=== PATIENT | female | born 1955 | race Caucasian/White ===

== ENCOUNTER 2023-05-11 08:20 | Outpatient (OUT) | payer MEDICARE, SELFPAY ==
--- NOTE | 2023-05-11 08:32 | MR_ITS ---
The [address] [address] Patient Name: GINGER JEFFERSON MRN: [id number] date: 1955 Sex: F Assigned Patient Location: MRI Current Patient Location: MRI Accession/Order Number: [id number] Exam Date: 05/11/2023 09:00 Report Date: 05/11/2023 10:38 At the request of: SCAR RANGEL Procedure: MR head/brain wo con MR head/brain wo con, 05/11/2023 9:00 AM EDT INDICATION: Cognitive Impairment R41.89 COMPARISON: There is no appropriate prior study for comparison. TECHNIQUE: Multiplanar, multisequential MRI images of brain were obtained without injection of contrast. FINDINGS: The cerebral sulci as well as ventricular system are appropriate for age. There is no restricted diffusion. Hyperintensities on T2 and FLAIR images in the kinsey radiata and centrum semiovale with sparing of U fibers are nonspecific, statistically most likely consistent with mild microvascular ischemic changes. There is no intracranial mass, mass effect, midline shift, intra or extra-axial fluid collection or large hemorrhage. Normal flow-void in the intracranial vessels is noted. There is retention cyst within the maxillary sinuses. The visualized portions of orbits, mastoid air cells as well as remainder of paranasal sinuses are unremarkable. MR/MR head/brain wo con IMPRESSION: No acute intracranial process is noted. No finding to suggest a typical neurodegenerative disorder. Electronically authenticated by: DANIEL HILLS Date: 05/11/2023 10:38
== END 2023-05-11 08:21 | disposition home or self-care (01) ==
PROVIDERS: PCP Family Medicine; Visit Provider Family Medicine
DX: R41.89 Other symptoms and signs involving cognitive functions and awareness (principal); R41.3 Other amnesia
CPT/HCPCS: 70551

== ENCOUNTER 2025-08-03 11:58 | Emergency (ER) | payer MEDICARE, SELFPAY ==
--- OUTSIDE RECORDS SUMMARY | 2025-07-20 16:15 | XMS_ITS | Encounter Summary ---
Author Organization [facility] tem Address [facility] [id number] [address] [place] [address] Care Team Providers Care Food Prep Worker Name Role Phone Keven Castillo DO Primary Care Provider + [phone] Reason for Visit * ReasonCommentsPre-op ExamSurgery -Jul 31 left hip Encounter Details DateTypeDepartmentCare Team (Latest Contact Info)Rpjzaknuhjd80/11/2025 4:15 PM ESTOffice Visit [facility] [address] [place] [address] Keven Castillo DO [address], [facility] [place] [address] Preoperative clearance (Primary Dx); Primary osteoarthritis of left hip; Single vessel coronary disease; Mild Alzheimer's dementia without behavioral disturbance, psychotic disturbance, mood disturbance, or anxiety, unspecified timing of dementia onset ([facility]) Social History Tobacco UseTypesPacks/DayYears UsedDateSmoking Tobacco: NeverSmokeless Tobacco: NeverAlcohol UseStandard Drinks/WeekCommentsYes0 (1 standard drink = 0.6 oz pure alcohol)OccasiohalAHC UtilitiesAnswerDate RecordedIn the past 12 months has the [employer], gas, oil, or water [employer] threatened to shut off services in your home?No06/16/2023Social Connection and Isolation PanelAnswerDate RecordedIn a typical week, how many times do you talk on the phone with family, friends, or neighbors?More than three times a week10/27/2022How often do you get together with friends or relatives?More than three times a week10/27/2022How often do you attend taoism or judaism services?More than 4 times per year10/27/2022o you belong to any clubs or organizations such as taoism groups, unions, fraternal or athletic groups, or school groups?Yes10/27/2022How often do you attend meetings of the clubs or organizations you belong to?Never10/27/2022re you , , , , never , or living with a partner? 10/27/2022UDIT-CAnswerDate RecordedQ1: How often do you have a drink containing alcohol?Never06/16/2023Q2: How many drinks containing alcohol do you have on a typical day when you are drinking?Patient does not drink06/16/2023Q3: How often do you have six or more drinks on one occasion?Never06/16/2023Overall Financial Resource Strain (CARDIA)AnswerDate RecordedHow hard is it for you to pay for the very basics like food, housing, medical care, and heating?Not hard at all 10/27/2022HQ-2AnswerDate RecordedTotal Awmmw79409/20/2024[facility] of Occupational Health - Occupational Stress QuestionnaireAnswerDate RecordedDo you feel stress - tense, restless, nervous, or anxious, or unable to sleep at night because yourmind is troubled all the time - these days?Not at all06/16/2023 Exercise Vital SignAnswerDate RecordedOn average, how many days per week do you engage in moderate to strenuous exercise (like a brisk walk)?1 day05/19/2025 Minutes of Exercise per SessionNot on file05/19/2025PRAPARE - Transportation AnswerDate RecordedIn the past 12 months, has lack of transportation kept you from medical appointments or from getting medications?No06/16/2023In the past 12 months, has lack of transportation kept you from meetings, work, or from getting things needed for daily living?No06/16/2023Housing InstabilityAnswerDate RecordedAre you worried or concerned that in the next two months you may not have stable housing that you own, rent or stay in as a part of a household?No 10/27/2022hildcareAnswerDate RecordedDo problems getting toddler caregiver make it difficult for you to work or study?No10/27/2022EmploymentAnswerDate RecordedDo you need help finding a local career center and/or a training program?No 10/27/2022Hunger ScreeningAnswerDate RecordedWithin the past 12 months we worried whether our food would run out before we got money to buy more.Never True07/20/2025Within the past 12 months the food we bought just didn't last and we didn't have money to get more.Never True07/20/2025Purpose - LifeAnswerDate RecordedI have a purpose and direction in my life.Agree06/16/2023 CommentsUnknownSex and Gender InformationValueDate RecordedSex Assigned at Not on fileLegal PxgMmqcjt26/06/2015 11:51 AM EDTGender IdentityNot on file Sexual OrientationNot on filedocumented as of this encounter Last Filed Vital Signs Vital SignReadingTime TakenCommentsBlood Ecolektd128/7007/20/2025 4:24 PM EST Lmkol939507/20/2025 4:24 PM KCQCxhdvaawpqk30.6 ??C (97.9 ??F)07/20/2025 4:24 PM ESTRespiratory Affe006309/20/2024 4:24 PM ESTOxygen Kpzxhhkmjk655%07/20/2025 4:24 PM ESTInhaled Oxygen Concentration--Dgefxf03.8 kg (165 lb)07/20/2025 4:24 PM EST Xsrrna099.6 cm (5' 4.02 )07/20/2025 4:24 PM ESTBody Mass Index28.31109/20/2024 4:24 PM ESTdocumented in this encounter Functional Status * BPAnswerDate of BnjopvotrzDuxmhq097/7007/20/2025 4:24 PM Denilson Martinez CMA * TempAnswerDate of OshwcoufpuCtajgo15.9109/20/2024 4:24 PM Denilson Martinez CMA * Temp srcAnswerDate of TdijajkfixQplswkDbzd70/11/2025 4:24 PM Denilson Martinez CMA * PulseAnswerDate of TixgnevltoAzxxss9251 4:24 PM Denilson Martinez CMA * RespAnswerDate of QdutpmspwgTxcgxi3439/11/2025 4:24 PM Denilson Martinez CMA * VjR1OblpspYafw of QtloyalvyzUqacpu27396/11/2025 4:24 PM Denilson Martinez CMA * HeightAnswerDate of GzdcssgremMzcriv50.5908507/20/2025 4:24 PM Denilson Martinez CMA * WeightAnswerDate of ZvcqnurkylQahiio622754/11/2025 4:24 PM Denilson Martinez CMA * Food InsecurityQuestionAnswerDate of AssessmentAuthorWithin the past 12 months the food we bought just didn't last and we didn't have money to get more.Never True07/20/2025 4:23 PM Denilson Martinez CMAWithin the past 12 months we worried whether our food would run out before we got money to buy more.Never True07/20/2025 4:23 PM Denilson Martinez CMA * FALL RISK ASSESSMENT COMPLETEDQuestionAnswerDate of AssessmentAuthorFall Risk Assessment Completed?Y109/20/2024 4:24 PM Denilson Martinez CMA * BEE (kcal)AnswerDate of DdtpwheykcDljoxu521420/11/2025 4:24 PM Denilson Martinez CMA * Screening questionsQuestionAnswerDate of AssessmentAuthorAre you worried about falling?N109/20/2024 4:24 PM Denilson Martinez CMADo you feel unsteady when standing or walking?N109/20/2024 4:24 PM Denilson Martinez CMAHave you fallen in the past year?N109/20/2024 4:24 PM Denilson Martinez CMA * Risk StratificationAnswerDate of AssessmentAuthorLow Risk07/20/2025 4:24 PM Denilson Martinez CMA * BSA (Calculated - sq m)AnswerDate of AssessmentAuthor1.8407/20/2025 4:24 PM Denilson Martinez CMA * BMI (Calculated)AnswerDate of EwszqbpgghQxacgh96.312 4:24 PM Denilson Dick CMA * Weight in (lb) to have BMI = 25AnswerDate of DezsgwvhzrRrguke566.412 4:24 PM Denilson Martinez CMA * Vitals TimerQuestionAnswerDate of AssessmentAuthorRestkingston Vitals TimerYes 07/20/2025 4:24 PM Denilson Martinez CMA * Over the last 2 weeks, how often have you been bothered by any of the following problems?QuestionAnswerDate of AssessmentAuthorLittle interest or pleasure in doing znpnip708 4:24 PM Denilson Martinez CMAFeeling down, depressed, or feojlvcn089/11/2025 4:24 PM Denilson Martinez CMATotal Tdajs99909/20/2024 4:24 PM Denilson Martinez CMA * BPAnswerDate of PwrxplvtmaOlectw493/7007/20/2025 4:24 PM Denilson Martinez CMA * TempAnswerDate of JixwzxaitiAujyuv39.9109/20/2024 4:24 PM Denilson Martinez CMA * Temp srcAnswerDate of XwgwwzihsvJrdfyqWayo49/11/2025 4:24 PM Denilson Martinez CMA * PulseAnswerDate of HqidqyfzkgIfzrxj5307 4:24 PM Denilson Martinez CMA * RespAnswerDate of BrxonhzjjdZjwoke0281/11/2025 4:24 PM Denilson Martinez CMA * KnQ3JpbdzaJvhj of SwqrifazgrQflqdb56890/11/2025 4:24 PM Denilson Martinez CMA * HeightAnswerDate of YkhtirosqhOmpcfc84.4114607/20/2025 4:24 PM Denilson Martinez CMA * WeightAnswerDate of FbtdqkivexJdmmjk374268/11/2025 4:24 PM Denilson Martinez CMA * BEE (kcal)AnswerDate of AatzybgkpyGwgbnh567704 4:24 PM Denilson Martinez CMA * BSA (Calculated - sq m)AnswerDate of AssessmentAuthor1.8412 4:24 PM Denilson Martinez CMA * BMI (Calculated)AnswerDate of HvgoekzblcDfitso75.312 4:24 PM Denilson Dick CMA * Weight in (lb) to have BMI = 25AnswerDate of RjvzeiysdhRqdsyy399.412 4:24 PM Denilson Martinez CMA documented as of this encounter Mental Status * BPAnswerEntry ZyrhFqrfpb772/7012 4:24 PM Denilson Martinez CMA * TempAnswerEntry EireHgqqid77.912 4:24 PM Denilson Martinez CMA * Temp srcAnswerEntry KvrrIapdsjWyfq82 4:24 PM Denilson Martinez CMA * PulseAnswerEntry VekgRkckde3625 4:24 PM Denilson Martinez CMA * RespAnswerEntry TzmsAdysfo5937 4:24 PM Denilson Martinez CMA * JlA1YhrsduWcdjb CntvHcexsd39672 4:24 PM Denilson Martinez DOMESTIC CLEANER documented in this encounter Progress Notes * Keven Castillo, DO - 07/20/2025 4:15 PM EST Subjective Patient ID: Aimee Contreras is a 69 y.o. female. Ronna presents today for Preoperative clearance. She is having her left hip replaced by Dr. Dow July 31. Cardiology cleared her and told her to stop ASA and plavix for 7 days. Ortho would like to stop plavix and fish oil for 10 days but said ortho nurse said she can take aspirin through the whole time and then double it the day following surgery. He is somewhat confused since he got 2 different recommendations. She denies any problems. She does not have any chest pain shortness breath or other symptoms of angina. No recent illness, sore throat or fever. She is taking her medications. She does not have any side effects. Her heart bypass was several decades ago. She has not had any further problems. Pre-op Exam Associated symptoms include arthralgias. The following portions of the patient's history were reviewed and updated as appropriate: allergies, current medications, past family history, past medical history, past social history, past surgicalhistory, problem list, and medication reconciliation was completed including current medication andpost discharge medication. Review of Systems Constitutional: Negative. HENT: Negative. Respiratory: Negative. Cardiovascular: Negative. Gastrointestinal: Negative. Genitourinary: Negative. Musculoskeletal: Positive for arthralgias. Skin: Negative. Neurological: Negative. Psychiatric/Behavioral: Positive for confusion. Objective Physical Exam Vitals reviewed. Exam conducted with a inspector experimental assembly present ( and Sally Rodriguez MS3). Constitutional: General: She is not in acute distress. Appearance: Normal appearance. She is overweight. She is not ill-appearing. HENT: Head: Normocephalic. Eyes: General: No scleral icterus. Extraocular Movements: Extraocular movements intact. Conjunctiva/sclera: Conjunctivae normal. Neck: Vascular: No carotid bruit. Cardiovascular: Rate and Rhythm: Normal rate. Pulses: Normal pulses. Heart sounds: Normal heart sounds. No murmur heard. Pulmonary: Effort: Pulmonary effort is normal. No respiratory distress. Breath sounds: Normal breath sounds. No wheezing, rhonchi or rales. Abdominal: General: Bowel sounds are normal. Palpations: Abdomen is soft. Tenderness: There is no abdominal tenderness. Musculoskeletal: Cervical back: Neck supple. Right lower leg: No edema. Left lower leg: No edema. Lymphadenopathy: Cervical: No cervical adenopathy. Skin: General: Skin is warm. Neurological: General: No focal deficit present. Mental Status: She is alert and oriented to person, place, and time. Gait: Gait abnormal (ambulates with a cane). Psychiatric: Mood and Affect: Mood normal. Behavior: Behavior normal. Thought Content: Thought content normal. Judgment: Judgment normal. Assessment/Plan Ronna was seen today for pre-op exam. Diagnoses and all orders for this visit: Preoperative clearance Ronna presents for preoperative clearance. She has no symptoms of angina or coronary artery disease. She has been cleared by the education courses sales representative. No recent illness. She is medically cleared for surgery.No further cardiac workup is indicated. Is okay with me if she stops the Plavix and fish oil for 10days and takes the aspirin all the way through but I encouraged the to follow up with orthoto make sure she can take the aspirin during that time. Primary osteoarthritis of left hip She has advanced osteoarthritis of left hip which is significantly impacting her quality of life. Single vessel coronary disease Stable. Mild Alzheimer's dementia without behavioral disturbance, psychotic disturbance, mood disturbance, or anxiety, unspecified timing of dementia onset (CMS-HCC) Stable. Continue current regimen. documented in this encounter Plan of Treatment DateTypeDepartmentCare Team (Latest Contact Info)Uhejldvxwef89/12/2026 10:00 AM EDTOffice Visit [facility] [address] [place] [address] Keven Castillo DO [address] PT [facility] NetworkRadhaMET[facility] [place] [address] documented as of this encounter Visit Diagnoses Diagnosis Preoperative clearance- Primary Unspecified pre-operative examination Primary osteoarthritis of left hip Single vessel coronary disease Mild Alzheimer's dementia without behavioral disturbance, psychotic disturbance, mood disturbance, or anxiety, unspecified timing of dementia onset ([facility]) documented in this encounter Additional Health Concerns AssessmentNoted TimePHQ-9 Depression Total Score: 4:24 PM ESTA Body Mass Index follow-up plan has been documented for the texfxcg8608/09/2022 9:37 PM ESTdocumented as of this encounter Care Teams Team MemberRelationshipSpecialtyStart DateEnd Date Keven Castillo DO [address] [facility] [employer] NetworkRadhaMETROPOL[facility] [place] [address] PCP - GeneralFamily Defrzhdc40/30/22documented as of this encounter
--- OUTSIDE RECORDS SUMMARY | 2025-07-31 13:46 | XMS_ITS | Continuity of Care Document ---
Author Organization [facility] Address Unknown Care Team Providers Care Construction Worker Name Role Phone SCAR RANGEL Primary Care Physician [phone] Encounter [facility] Date(s): 07/31/25 - 07/31/[address] [address] Encounter Diagnosis Chronic hip pain after total replacement of left hip joint(Discharge Diagnosis) - 07/30/25 Other chronic pain(Discharge Diagnosis) - 07/30/25 Presence of left artificial hip joint(Discharge Diagnosis) - 07/30/25 Discharge Disposition: Home Attending Physician: KADEN OSORIO DO Admitting Physician: KADEN OSORIO DO Encounter Type: Day Surgery Allergies, Adverse Reactions, Alerts SubstanceCriticalitySeverityReactionReaction SeverityStatuspenicillinUnable to assess criticalityUnknownUnknownActive Functional Status 07/31/25 ADLsMinimal assistance 07/31/25 Anesthesia Note Patient: GINGER JEFFERSON Age: 69 years Sex: FEMALE : 1955 Associated Diagnoses: None Author: Yakov Ennis MD Postoperative Information Post Operative Note: Post Anesthesia Care Unit. Anesthetic utilized: General. Regional: Fascia Iliaca block (SIFI) for post-operative pain control. . Health Status Allergies: Allergic Reactions (All) Unknown Penicillin- Unknown. Physical Examination Vital Signs (last 24 hrs) Last Charted Temperature Temporal 36.4 DegC (JUL 31 09:56) Heart Rate Monitored 61 bpm (JUL 31 10:55) Respiratory Rate 18 br/min (JUL 31 10:55) Systolic Blood Pressure H 128 mmHg (JUL 31 10:55) Diastolic Blood Pressure L 58 mmHg (JUL 31 10:55) SpO2 100 % (JUL 31 10:55) General: Alert and oriented, No acute distress, Slightly shivering. Reports being cold.. Respiratory: Respirations are non-labored. Cardiovascular: Normal rate, Regular rhythm. Review / Management Condition: Stable. Assessment Anesthetic outcome No anesthetic complications noted. Adequate pain relief. No Complaint of nausea and vomiting. Plan Transfer/ Discharge: Patient can be discharged from PACU when criteria met. Condition good. 07/12/25 Family Member Travel HistoryNo recent travelRecent Travel HistoryNo recent travelOther exposure to Infectious DiseaseUnknown Medications acetaminophen-oxycodone 325 mg-5 mg oral tablet 1 tab(s), Oral, q6hr (int), # 28 tab(s), 0 Refill(s) Start Date: 07/31/25 Status: Ordered Medication Dispense Status: Completed Quantity: 28.0 Unit: tab(s) Total Allowed Fills: 1 Fills Dispensed: 0 Aspirin Low Dose 81 mg oral delayed release tablet 1 tab(s) ( 81 mg ), Oral, BID Start Date: 07/12/25 Status: Ordered Medication Dispense Status: Completed Total Allowed Fills: 1 Fills Dispensed: 0 donepezil 10 mg oral tablet 1 tab(s) ( 10 mg ), Oral, HS Start Date: 07/12/25 Status: Ordered Medication Dispense Status: Completed Total Allowed Fills: 1 Fills Dispensed: 0 Ferrex 150 Forte oral capsule 1 tab(s), Oral, Daily Start Date: 07/12/25 Status: Ordered Medication Dispense Status: Completed Total Allowed Fills: 1 Fills Dispensed: 0 Fish Oil 1200 mg oral capsule 1 tab(s), Oral, Daily, 0 Refill(s) Start Date: 07/12/25 Status: Ordered Medication Dispense Status: Completed Total Allowed Fills: 1 Fills Dispensed: 0 levothyroxine 50 mcg (0.05 mg) oral tablet 1 tab(s) ( 50 mcg ), Oral, Daily Start Date: 07/12/25 Status: Ordered Medication Dispense Status: Completed Total Allowed Fills: 1 Fills Dispensed: 0 Multivitamin, generic 1 tab(s), Oral, Daily, 0 Refill(s) Start Date: 07/12/25 Status: Ordered Medication Dispense Status: Completed Total Allowed Fills: 1 Fills Dispensed: 0 nitroglycerin 0.4 mg sublingual tablet 1 tab(s) ( 0.4 mg ), Tab, Sublingual, q5min, Instructions: not to exceed 3 doses/15 min--if pain persists, seek medical attention, PRN: as needed for chest pain Start Date: 07/12/25 Status: Ordered Medication Dispense Status: Completed Total Allowed Fills: 1 Fills Dispensed: 0 rosuvastatin 40 mg oral tablet 1 tab(s) ( 40 mg ), Oral, Daily Start Date: 07/12/25 Status: Ordered Medication Dispense Status: Completed Total Allowed Fills: 1 Fills Dispensed: 0 Mental Status 07/31/25 Level of ConsciousnessAlert Problem List ConditionConfirmationCourseEffective DatesStatusHealth StatusInformantCAD (coronary artery disease)ConfirmedActiveDementiaConfirmedActiveHyperlipidemia ConfirmedActiveHypothyroidismConfirmedActiveOsteoarthritisConfirmedActiveHip pain, leftConfirmedActive Procedures ProcedureDateRelated DiagnosisBody SiteStatusTotal hip vapcjmjgbej19/21/25 CompletedCardiac udfwezzcfxxojwn31140RwinzpdpwYfluwc0, 3CompletedColonoscopy Completed 1PCI/ stent x1 to RCA 2info obtained per records [facility] 3x1- ELLIS to cicumflex Results Radiology Reports * Exam Date TimeProcedurePerforming MgqjffkxAqnswu30/22/25 10:15 AMXR Hip 1 View Lt w/ PelvisAuth (Verified) Notes: (XR Hip 1 View Lt w/ Pelvis) Reason For Exam: Post op left hip REPORT EXAMINATION: XR Hip 1 View Lt w/ Pelvis, 07/31/2025 10:25 AM EST INDICATION: Status post left hip arthroplasty. FINDINGS: Left hip arthroplastic hardware appears intact. No fracture. Alignment is anatomic. Expected surrounding post surgical soft tissue findings. Limited visualization of the right hip suggests moderate to severe osteoarthritic changes. IMPRESSION: 1. Satisfactory and expected findings status post left hip arthroplasty. Final Dictated by: Toshia Shields MD Dictated DT/TM: 07/31/25 11:14 Signed (Electronic Signature): Toshia Shields MD 07/31/25 11:15 a Technologist: CARMEN CHANG Vital Signs Most recent to oldest [Reference Range]:374Jctoqg612.56 cm (07/12/25 8:11 AM)Cwriuk39.0 kg (07/12/25 8:11 AM)Weight Ngmira39.000 kg (07/12/25 8:11 AM)Body Mass Index28.38 kg/m2 (07/12/25 8:11 AM)Temperature Temporal [36.3-37.8 DegC]35.8 DegC *LOW* (07/31/25 10:55 AM)36.4 DegC (07/31/25 9:56 AM)36.1 DegC *LOW* (07/31/25 6:05 AM)Temperature (Route Not Specified)37 DegC DegC (07/31/25 9:45 AM)37 DegC DegC (07/31/25 9:30 AM)37 DegC DegC (07/31/25 9:15 AM)Peripheral Pulse Rate [60-100 bpm]59 bpm *LOW* (07/31/25 1:36 PM)55 bpm *LOW* (07/31/25 1:15 PM)56 bpm *LOW* (07/31/25 1:00 PM)Heart Rate Monitored [60-100 bpm]54 bpm *LOW* (07/31/25 12:15 PM)57 bpm *LOW* (07/31/25 12:00 PM)56 bpm *LOW* (07/31/25 11:45 AM)Respiratory Rate [14-20 br/min]16 br/min (07/31/25 1:36 PM)16 br/min (07/31/25 1:15 PM)16 br/min (07/31/25 1:00 PM)Blood Pressure [90-120/60-80 mmHg]142/64mmHg *HI* (07/31/25 1:36 PM)122/49mmHg *HI* (07/31/25 1:15 PM)109/49mmHg (07/31/25 1:00 PM)Mean Arterial Pressure, Cuff [65-100 mmHg]90 mmHg (07/31/25 1:36 PM)73 mmHg (07/31/25 1:15 PM)69 mmHg (07/31/25 1:00 PM)SpO2 [95 %]96 % (07/31/25 1:36 PM)93 % *LOW* (07/31/25 1:15 PM)97 % (07/31/25 1:00 PM)Oxygen Flow Rate6 L/min (07/31/25 10:25 AM)6 L/min (07/31/25 10:20 AM)6 L/min (07/31/25 10:15 AM)Oxygen TherapyRoom air (07/31/25 1:36 PM)Room air (07/31/25 1:15 PM)Room air (07/31/25 1:00 PM)SpO2 LocationRight hand (07/31/25 10:55 AM)Right hand (07/31/25 10:50 AM)Right hand (07/31/25 10:45 AM) Social History Social History TypeResponseTobaccoNever tobacco user Tobacco Use:. Sex FemaleSex RepresentationFemale (finding) Implantable Device List ProcedureProviderProcedure DateDevice TypeSiteArthroplasty Total HipSTEPANIC, KADEN Edmondson DO07/31/25UnknownHip LDevice IdentifierSerial NumberLot or Batch Number Manufacturing DateExpiration DateDistinct Identification CodeMRI Safety Implantable StatusAssigning [id number] NoxligbFtmmz[id number]tive [id number]/30/35UnknownUnknownActiveUnknownUnknown EoawcorM4397RFwabrzf7/30/93DfmqqzuXtdaeraQgbyb[id number] Unknown02/05/30UnknownUnknownActiveUnknown Hospital Discharge Instructions Patient Education 07/31/2025 06:27:42 stepanic post op hip instructions (MHGSTEPANIC) (MHGSTEPANIC) POST OPERATIVE TOTAL KNEE/HIP DISCHARGE INTRUCTIONS SURGEONS WRITTEN INSTRUCTIONS: Walk with walker; bear weight to tolerance on operative extremity Elevate extremity 1 hour 3 times/day to control pain and swelling and apply ice Range of motion to ankle 10 times/hour Range of motion to knee hourly Change dressing daily. Rosalie hose (compression stockings) for 6 weeks Physical therapy as prescribed May shower, no tub bath. Do not rub/scrub incision. Wash gently Take Aspirin 81mg 2x for 30 days to help prevent blood clots, coated or uncoated per patient preference. WHAT YOU SHOULD KNOW AFTER YOUR OPERATION: If you need pain pills, start before the pain becomes intense. Pain pills are frequently less upsetting to your stomach if you take them with food such as crackers or bread. If you have excessive or persistent pain, swelling, bleeding, nausea, vomiting or any other problems, you should first call your surgeon for advice. If you are unable to contact your surgeon, seek help from the emergency room. FOR THE PREVENTION OF DVT AFTER LOWER EXTREMITY SURGERY What is a DVT? There is always the risk of DVT after lower extremity surgery. DVT, or deep vein thrombosis, is a blood blot in a major vein that may partially or completely block the flow of blood. The clot occurs in the legs or pelvis, in areas where blood flow is slow, or in an injured blood vessel. DVT can be life-threatening should pieces of the clot break away and travel to the lungs. This is called pulmonary embolism What are the symptoms of DVT? The area affected by the blood clot may become swollen and painful, and possibly turn red as the normal flow of blood is blocked. You may also develop edema, which is the build up of fluid in the skin tissues surrounding the clot. If the clot is somewhere other than your leg, there may be no physical signs of DVT. If the clot breaks away and travels to your lungs, you may experience shortness of breath and chest pain. If this occurs you should call your doctor immediately or go to the emergencyroom. How can I prevent DVT? You should keep active. Moving the ankle and foot and bending the knee as tolerated when you are inbed and walking as tolerated. Take medication, especially the Aspirin, as prescribed by your doctor. What should I do if I think I have a DVT? You should call your doctor or go to the emergency room any time you have a sudden and unusual shortness of breath that is not related to exercise, exertion or anxiety. If you have swelling with redness and pain in your leg, you should call your doctor immediately. If there is concern then a test called ???Venous Doppler?? can be done to rule of a DVT. #1 May shower and change dressing daily, no scrubbing or rubbing incision during shower just let the water run over the incision #2 stop smoking and drinking alcohol #3 ice to operative hip 20 minutes every hour while awake until pain and swelling control #4 flex and extend both feet/ankles 10 times per hour while awake #5 push both knees backwards into the bed 10 times every hour while awake, clench buttock muscles together 10 times every hour while awake #6 use walker weight-bear as tolerated to operative hip #7 No external rotation of the operative hip's foot, no kicking operative hip leg to the side, no flexion of operative hip past 90?? #8 follow up in office with physician physical laboratory assistant Varun Lynn as scheduled #9 [facility] will be contacting you within the next 24 hours to set up home therapy visit #[address] Osorio at the office [phone] or have him paged through the hospital building equipment operator [phone] for any concerns or questions #[address] Osroio if no bowel movement in 2 days Or if you're uncomfortable before that #12 You have been given a prescription for Percocet, Percocet is a narcotic, narcotics are addictive. If you feel you have problems with addiction, feel free to contact Dr. Osorio, your family physician, or proceed immediately to the nearest hospitals emergency services department. #13 get up every 2 hours while awake and walk around the house in a safe area for 1-2 minutes with walker #14 knee-high ROSALIE hose to be worn daily for the next 30 days to prevent blood clots #15 take aspirin 81 mg twice daily for 30 days to help prevent blood clots Follow Up Care 05/24/2025 11:02:53 With:Ricci Jones Address: [address] [place] [id number] [facility] (1) When:08/14/2025 09:00:00 Nurse Progress note * Rafaela Toscano RN: PERFORM Event Display: Progress Note - Nurse Authored Date: [id number] Preop call for 07/31 surgery made. Spoke to ,Lucio. Arrival time of 0600 and NPO at midnight.Instructed to bring walker with them the morning of surgery. No questions at this time. [Electronically Signed on: 07/28/2025 09:15 EST] Rafaela Toscano RN [Verified on: 07/28/2025 09:15 EST] Rafaela Toscano RN * Alexandre Marte RN: PERFORM Event Display: Progress Note - Nurse Authored Date: [id number] Dr Charles reviews pt chart and no new orders were received. [Electronically Signed on: 07/13/2025 12:53 EST] Alexandre Marte RN [Verified on: 07/13/2025 12:53 EST] Alexandre Marte RN EKG study * Event Display: Telemetry Strips History and physical note * KADEN OSORIO DO: PERFORM Event Display: History and Physical Authored Date: [id number] Patient Care team information Care Team Personnel Name: CLAIRESCAR Position: [facility] No Access Member Role: Primary Care Physician Address: [address] [place] [address] Telecom: Care Team Related Persons Name: LUCIO JEFFERSON Insurance Providers Guarantor name: GINGERISRA BUSHAN LI Health Plan Information #: 1 Payer: THOMAS Payer Identifier: BELL Member Number: [id number] Group Number: [id number] Subscriber Identifier: [id number] Relationship to Subscriber: self Coverage Type: MEDICARE Coverage Verification Date: 25 Telecom: [phone] Address: [address] [address]
[2025-08-03] VITALS (24 sets, daily range): BP systolic 120–163; BP diastolic 43–84; PULSE 52–76; TEMP 36.2; O2SAT 89–100; BMI 24.4
--- NOTE | 2025-08-03 12:01 | ECG_ITS ---
[facility] Test Date: 2025-08-03 Pat Name: GINGER JEFFERSON Department: Room: - Gender: Female Erp Technical Lead: : 1955 Requested By: [id number] Order Number: [id number] Reading MD: KADEN STARK M.D. Measurements Intervals [place] Rate: 53 P: 43 IN: 178 QRS: 70 QRSD: 92 T: 67 QT: 406 QTc: 390 Interpretive Statements 1100 Sinus rhythm 9110 normal ECG No previous ECG available for comparison Electronically Signed On 08-03-2025 21:34:49 EST by KADEN STARK M.D.
--- NOTE | 2025-08-03 12:01 | XR_ITS ---
The [address] [address] Patient Name: GINGER JEFFERSON MRN: [id number] date: 1955 Sex: F Assigned Patient Location: ED.MAIN Current Patient Location: ED.MAIN Accession/Order Number: [id number] Exam Date: 08/03/2025 12:45 Report Date: 08/03/2025 15:35 At the request of: LEONID CABRERA DO Procedure: XR hip LT 2V w/ pelvis 2 views left hip with single view pelvis HISTORY: Recent fall. Left hip pain. Recent left hip arthroplasty Uncomplicated left hip arthroplasty. Adequate alignment without acute displaced fracture. Degenerative change. Recent postsurgical soft tissue changes. XR/XR hip LT 2V w/ pelvis IMPRESSION: Uncomplicated right hip arthroplasty. No acute displaced fracture. Impression dictated by: Davonte Sun M.D. 08/03/2025 3:35 PM Dictation Location: [place] [address] Electronically authenticated by: [id number] Y Date: 08/03/2025 15:35
[2025-08-03] MEDS: HYDROMORPHONE HCL 0.5 MG/0.5 ML SYRINGE IV (12:08)
[2025-08-03] MEDS: 0.9 % SODIUM CHLORIDE 1,000 ML 1000 ML IV (12:08)
--- NOTE | 2025-08-03 12:21 | ED_ITS ---
HPI HPI - General Adult General Chief complaint: Syncope Stated complaint: SYNCOPAL EPISODE Time Seen by Provider: 08/03/25 12:01 Source: patient Mode of arrival: ambulance Limitations: no limitations History of Present Illness HPI narrative: Patient is a 69-year-old female presenting to the emergency department via EMS for concerns of a syncopal event. According to EMS, the patient was in a hot shower being bathed by her daughter when she had a syncopal event. The event lasted approximately a couple minutes before she came to. She had no episodes of confusion afterwards, and return to her baseline. She does have a history of dementia and is oriented x 1 at baseline. Patient has no history of seizures, did not lose bladder/bowel function and did not bite her tongue. No concern for head trauma. The patient is complaining of pain in her left hip, she is recently postop from hip surgery about a week ago. The patient has no chest pain, shortness of breath, abdominal pain, headache, neck pain, nausea, or vomiting. Related Data Allergies Allergy/AdvReac Type Severity Reaction Status Date / Time Penicillins Allergy Unknown Unknown Verified 08/03/25 12:05 Opioid HPI Opioid Management Most Recent Opioid Data: Last Pain Scale 8 Today, 12:15 Review of Systems ROS Status of ROS 10 or more systems reviewed and unremark able except as noted in history and below PFSH PFSH Social History Little interest or pleasure in doing things: not at all Feeling down, depressed, or hopeless: not at all Exam Narrative Exam Narrative: CONSTITUTIONAL: Patient is crying and appears in acute distress, oriented x 1 to name, follow commands appropriately SKIN: Was warm and dry, no external signs of injury such as abrasions or ecchymosis. HEAD: Atraumatic, normocephalic. No C-spine tenderness. EYES: Sclerae white. PERRLA. EARS, NOSE, THROAT: Moist oral mucosa. RESPIRATORY: Clear to auscultation bilaterally, no wheezes, crackles, or stridor, no use of accessory muscles CARDIOVASCULAR: Normal rate and regular rhythm. There is no S3, S4, murmur, rub. 2+ DP pulses bilaterally. GASTROINTESTINAL: Abdomen is nondistended. MUSCULOSKELETAL: Tenderness to palpation throughout the left hip. There is an approximately 10 cm linear surgical incision site over the left proximal femur with lei. The incision is clean/dry/intact without dehiscence, cellulitic changes, or purulent drainage. Leg lengths are equal. Limited range of motion of the left hip secondary to pain. No deformities. NEUROLOGIC: Patient is awake and alert. Sensation intact to light touch in the bilateral upper/lower extremities. Facies were symmetrical. Constitutional Vital Signs, click to edit/add: Last Vital Signs Temp 97.1 F L 08/03/25 12:02 Pulse 67 08/03/25 15:50 Resp 15 08/03/25 15:50 BP 120/59 08/03/25 15:00 Pulse Ox 96 08/03/25 15:10 O2 Del Method Room Air 08/03/25 12:15 Course Vital Signs Vital signs: Vital Signs Blood Pressure 141/43 L 08/03/25 12:01 Pulse Oximetry 97 08/03/25 12:01 Temperature 97.1 F L 08/03/25 12:02 Pulse Rate 67 08/03/25 15:50 Respiratory Rate 15 08/03/25 15:50 Blood Pressure 120/59 08/03/25 15:00 Pulse Oximetry 96 08/03/25 15:10 Oxygen Delivery Method Room Air 08/03/25 12:15 Medical Decision Making [facility] Narrative Medical decision making narrative: Patient is a 69-year-old female presenting to the emergency department EMS for concerns of a syncopal event while in a hot shower earlier today. Family at the bedside and states that she got hot, nauseous, sweaty, and a brief period of loss of consciousness for coming to and returning to her baseline. Of note, she is approximately 1 week postop of left total hip arthroplasty. Her vital signs on arrival are within normal limits. She is afebrile and hemodynamically stable. Examination as noted above. She is neurovascularly intact in the RLE. Surgical incision site looks to be healing well without evidence of post- operative infection. Differential diagnosis includes vasovagal syncope, cardiogenic syncope, hip fracture, dehydration, or other electrolyte/metabolic derangement. No postictal state or loss of bladder/bowel function/tongue biting. IV was established and laboratory studies were obtained. 12 Lead EKG: Normal sinus rhythm at a rate of 53. Normal axis. No ST segment elevations. QRS, AK, and QTc interval within normal limits. Final impression: normal sinus rhythm without evidence of acute myocardial ischemia Laboratory studies were unremarkable. No significant electrolyte or metabolic derangement. No evidence of acute kidney injury. No anemia, leukocytosis, or thrombocytopenia. No transaminitis or hyperbilirubinemia. Troponin nonelevated. X-rays of the left hip independently reviewed and interpreted by myself and radiology demonstrated no acute osseous abnormalities. I do believe the patient is stable for discharge. Patient's presentation is most likely consistent with vasovagal syncope. They were instructed to follow up with their PCP and orthopedic surgeon as needed. Return precautions were given including any new or worsening symptoms. Patient and her family understands and agrees to the plan. FINAL IMPRESSION: #Acute vasovagal syncope #Acute left hip pain #History of recent left total hip arthroplasty DISPOSITION: Discharged home CONDITION: Good Medical Records Medical records reviewed: Yes I reviewed the patient's medical records Lab Data Lab results reviewed: Yes I reviewed the patient's lab results Labs: Lab Results 08/03/25 Range/Units 12:21 WBC 8.7 (4.0-11.0) 10^3/uL RBC 3.53 L (4.20-5.40) 10^6/uL Hgb 10.0 L (12.0-16.0) g/dL Hct 30.1 L (36.0-48.0) % MCV 85.3 (81.0-99.0) fL MCH 28.3 (26.7-34.0) pg MCHC 33.2 (29.9-35.2) g/dL RDW 13.4 (11.0-15.0) % Plt Count 200 (150-450) 10^3/uL MPV 10.3 (9.5-13.5) fL Neut % (Auto) 79.9 H (43.0-75.0) % Lymph % (Auto) 11.9 L (20.5-60.0) % Roberts % (Auto) 5.8 (1.7-12.0) % Eos % (Auto) 1.5 (0.9-7.0) % Baso % (Auto) 0.6 (0.2-2.0) % Neut # (Auto) 7.0 H (1.4-6.5) 10^3/uL Lymph # (Auto) 1.0 L (1.2-3.8) 10^3/uL Roberts # (Auto) 0.5 (0.3-0.8) 10^3/uL Eos # (Auto) 0.1 (0.0-0.7) 10^3/uL Baso # (Auto) 0.1 (0.0-0.1) 10^3/uL Abs Immat Gran (auto) 0.03 (0.00-0.03) 10^3/uL Imm/Tot Granulo (auto) 0.3 (0.0-0.5) % Sodium 138 (136-145) mmol/L Potassium 3.9 (3.5-5.1) mmol/L Chloride 102 (98-107) mmol/L Carbon Dioxide 27.7 (21.0-32.0) mmol/L Anion Gap 12.2 BUN 11.0 (7.0-18.0) mg/dL Creatinine 0.98 (0.55-1.02) mg/dL Est GFR ( Amer) >60 (>=60 mL/min/1.73m^2) Est GFR (Non-Af Amer) 57 L (>=60 mL/min/1.73m^2) BUN/Creatinine Ratio 11.2 Glucose 135 H (74-106) mg/dL Calcium 9.5 (8.5-10.1) mg/dL Total Bilirubin 0.7 (0.2-1.0) mg/dL AST 30 (15-37) U/L ALT 30 (14-59) U/L Alkaline Phosphatase 93 (46-116) U/L Troponin I High Sens 4.2 (4.0-51.3) pg/mL Total Protein 6.6 (6.4-8.2) g/dL Albumin 3.0 L (3.4-5.0) g/dL Globulin 3.6 g/dL Albumin/Globulin Ratio 0.8 Imaging Data Left hip xray: Attestation: I personally reviewed and interpreted this imaging study as follows: Radiologist's impression: ITS Impressions Hip/Pelvis X-Ray 08/03/25 12:01 IMPRESSION: Uncomplicated right hip arthroplasty. No acute displaced fracture. Impression dictated by: Davonte Sun M.D. 08/03/2025 3:35 PM Dictation Location: [place] [address] Electronically authenticated by: [id number] Y Date: 08/03/2025 15:35 ECG Data Attestation: I personally reviewed and interpreted this ECG as follows: Discharge Plan Discharge Chief Complaint: Syncope Clinical Impression: Vasovagal syncope Patient Disposition: Home, Self-Care Time of Disposition Decision: 15:39 Condition: Good Mode of Transportation: Private Vehicle Print Language: Scottish Instructions: Syncope in Older Adults (ED) Referrals: SCAR RANGEL [Primary Care Provider, Family Practice] - 1 week Discharge Date/Time: 08/03/25 16:14
--- OUTSIDE RECORDS SUMMARY | 2025-08-03 12:31 | XMS_ITS | Encounter Summary ---
Author Organization [facility] Cotendo s tem Address [id number] [address] [place] [address] Care Team Providers Care Internal Carver Name Role Phone Keven Castillo DO Primary Care Provider + [phone] Encounter Details DateTypeDepartmentCare Team (Latest Contact Info)Vdoxupnpezj60/13/2025Results [facility] [address] [place] [address] Keven Castillo DO [address], [facility] [place] [address] Thyroid profile includes TSH FT4, Lipid profile, Comprehensive metabolic panel Social History Tobacco UseTypesPacks/DayYears UsedDateSmoking Tobacco: NeverSmokeless Tobacco: NeverAlcohol UseStandard Drinks/WeekCommentsYes0 (1 standard drink = 0.6 oz pure alcohol)OccasiohalAHC UtilitiesAnswerDate RecordedIn the past 12 months has the [employer], [employer], oil, or water [employer] threatened to shut off services in your home?No06/16/2023Social Connection and Isolation PanelAnswerDate RecordedIn a typical week, how many times do you talk on the phone with family, friends, or neighbors?More than three times a week10/27/2022How often do you get together with friends or relatives?More than three times a week10/27/2022How often do you attend oriental orthodox or quaker services?More than 4 times per year3Do you belong to any clubs or organizations such as oriental orthodox groups, unions, fraternal or athletic groups, or [...] and heating?Not hard at all 10/27/2022HQ-2AnswerDate RecordedTotal Aibiu46809/20/2024[facility] Occupational Health - Occupational Stress QuestionnaireAnswerDate [...] of a household?No 10/27/2022hildcareAnswerDate 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 [...] have a purpose and direction in my life.Agree3 CommentsUnknownSex and Gender InformationValueDate RecordedSex Assigned at Not on fileLegal UoeUkvdqu52/06/2015 11:51 AM EDTGender IdentityNot on file Sexual OrientationNot on filedocumented as of this encounter Plan of Treatment DateTypeDepartmentCare Team (Latest Contact Info)Zdiectqhlep68/12/2026 10:00 AM EDTOffice Visit [facility] [address] [place] [address] Keven Castillo DO [address], [facility] [address] documented as of this encounter Visit Diagnoses Not on filedocumented in this encounter Additional Health Concerns AssessmentNoted TimePHQ-9 Depression Total Score: 11:34 AM EDTA Body Mass Index follow-up plan has been documented for the khtsfua0408/09/2022 9:37 PM ESTdocumented as of this encounter Care Teams Team MemberRelationshipSpecialtyStart DateEnd Date Keven Castillo DO [address], [facility] [address] PCP - GeneralFamily Gnybgfif42/30/22documented as of this encounter
--- OUTSIDE RECORDS SUMMARY | 2025-08-03 12:31 | XMS_ITS | Clinical Summary ---
Author Organization [employer] Address [id number] [place] [address] Care Team Providers Care Lace Mender Name Role Phone Keven Castillo DO Primary Care Provider + [phone] Allergies Active AllergyReactionsCriticalityNoted TvxxQmpcknxtHgurkzwtxhRlqrFai50/13/2023 Mnvhmcdyvdj49/30/2022 Medications MedicationSigDispense QuantityRefillsLast FilledStart DateEnd DateStatus omega 8-yuf-skq-fish oil 300-1,000 mg capsule Take by mouth.Active rosuvastatin (CRESTOR) 40 mg tablet Indications:Mixed hyperlipidemiaTake 1 tablet (40 mg total) by mouth in the morning. 90 tablet 5Active levothyroxine (SYNTHROID, LEVOTHROID) 50 MCG tablet Take 1 tablet (50 mcg total) by mouth in the morning. 90 tablet 5Active donepeziL (ARICEPT) 10 mg tablet Take 1 tablet (10 mg total) by mouth nightly. 90 tablet 5Active clopidogreL (PLAVIX) 75 mg tablet Take 1 tablet (75 mg total) by mouth in the morning./6Active aspirin 81 mg 5Active nitroglycerin (NITROSTAT) 0.[address] 1 tablet (0.4 mg total) under the tongue every 5 (five) minutes as needed for chest pain. 25 tablet 5Active FERREX 150 FORTE 150-25-1 mg-mcg-mg capsule 1 tab(s), Oral, Daily5Active Active Problems ProblemNoted DateDiagnosed DatePrimary osteoarthritis of left hip05/19/2025 Greater trochanteric pain rwannkhq13/29/0064Vfmjdvcokyutjs20/29/2024hinitis 07/27/20239170Jhvadhwbmb23/18/4937Ebfyrzoyngoukz41/13/2023Single vessel coronary kcpxsyb1805/22/2023Sinus eqslmhkrmuc98/13/2023ognitive nhraugjwtr20/20/2023 Dementia Resolved Problems ProblemNoted DateDiagnosed DateResolved DateMild major ooypgqzfkz30/20/2023 05/19/2025 Encounters DateTypeDepartmentCare HrftTqcrcqkdrsp38/12/2025Orders Only [facility] [address] [place] [address] Keven Castillo DO 07/20/2025 4:15 PM ESTOffice Visit [facility] [address] [place] [address] Keven Castillo DO Preoperative clearance (Primary Dx); Primary osteoarthritis of left hip; Single vessel coronary disease; 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) 07/20/20258377Jfrmkr52/11/2025Orders Only [facility] [address] [place] [address] Ref Prov, Not In System 07/03/2025Telephone [facility] [address] [place] [address] Claudia Alfaro CMA 06/13/2025Telephone [facility] [address] [place] [address] Gauri Peñaloza CMA Colon Cancer Mjzdbwtdd93/13/2025Results Follow-Up [facility] [address] [place] [address] Keven aCstillo DO Thyroid profile includes TSH FT4, Lipid profile, Comprehensive metabolic panel 05/19/2025 11:30 AM EDTOffice Visit [facility] [address] [place] [address] Keven Castillo, DO Medicare annual wellness visit, subsequent (Primary Dx); Screening for depression; Hyperlipidemia, unspecified hyperlipidemia type; Hypothyroidism, unspecified type; Single vessel coronary disease; Encounter for screening mammogram for malignant neoplasm of breast; Primary osteoarthritis of left hip05/19/20253743Dztowb87/08/2025Refill [facility] [address] [place] [address] Darlin Terrell CMA from Last 3 Months Immunizations ImmunizationAdministration DatesNext DueInfluenza, Hpndcfdvntz81/01/2020, 08/10/2017,05/10/2015,05/10/2013 Family History Medical HistoryRelationNameCommentsHeart diseaseBrother 1Heart diseaseBrother 2 DementiaMotherHeart diseaseMotherRelationNameStatusCommentsBrother 1AliveBrother 2AliveMotherDeceased Social History Tobacco UseTypesPacks/DayYears UsedDateSmoking Tobacco: NeverSmokeless Tobacco: Never Tobacco Cessation:Counseling Given: Not Answered Alcohol UseStandard Drinks/WeekCommentsYes0 (1 standard drink = 0.6 oz pure alcohol)OccasiohalAHC UtilitiesAnswerDate RecordedIn the past 12 months has the [employer], gas, oil, or water [employer] threatened to shut off services in your home?No06/16/2023Social Connection and Isolation PanelAnswerDate RecordedIn a typical week, how many times do you talk on the phone with family, friends, or neighbors?More than three times a week10/27/2022How often do you get together with friends or relatives?More than three times a week10/27/2022How often do you attend worship or mandaen services?More than 4 times per year10/27/2022o you belong to any clubs or organizations such as worship groups, unions, fraternal or athletic groups, or [...] and heating?Not hard at all 10/27/2022HQ-2AnswerDate RecordedTotal Lskqk44809/20/2024[facility]ational Health - [...] of a household?No 10/27/2022hildcareAnswerDate 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 [...] InformationValueDate RecordedSex Assigned at Not on fileLegal GhdPwuwhs91/06/2015 11:51 AM EDTGender IdentityNot on file Sexual OrientationNot on file Last Filed Vital Signs Vital SignReadingTime TakenCommentsBlood Tfcoolzr088/7007/20/2025 4:24 PM EST Hsejy860907/20/2025 4:24 PM UJTHryyraiyhtu75.6 ??C (97.9 ??F)07/20/2025 4:24 PM ESTRespiratory Xpra078609/20/2024 4:24 PM ESTOxygen Udkcgkwwmo462%07/20/2025 4:24 PM ESTInhaled Oxygen Concentration--Oycoyt15.8 kg (165 lb)07/20/2025 4:24 PM EST Mgyqzh421.6 cm (5' 4.02 )07/20/2025 4:24 PM ESTBody Mass Index28.31109/20/2024 4:24 PM EST Plan of Treatment DateTypeDepartmentCare Team (Latest Contact Info)Aywimuzbkng77/12/2026 10:00 AM EDTOffice Visit [facility] [address] [place] [address] Keven Castillo, DO [address], [place] [address] Health MaintenanceDue DateLast DoneCommentsAdult BMI Follow Up Plan11/23/1975 Elkyfjrof36Influenza Rtmyuek62, 08/10/2017, 05/10/2015, Additional history existsPostponed from 04/10/2025 (Patient Refused) Statin Use: Ccqhzcevkrjpet95/09/202609/olon Cancer Screening 3 Year Apmhoieam66/03/2022, 02/12/2022ostponed from 02/14/2025 (Patient Refused)DTaP,Tdap and Td Vaccines (1 - Tdap)05/19/2026Postponed from 1976 (Patient Refused)Medicare Annual Wellness Visit, 05/19/2024, 06/16/2023Zoster (Shingles) Vaccine (1 of 2)05/19/2026Postponed from 11/23/2007 (Patient Refused)Adult BMI Feetuagga86Depression Screening Fall Risk Jfpharkxn98Tobacco Screening RSV ( or age 60+ yrs) (1 - 1-dose 75+ series) 3Pap OaomuRazveobqlmsa25/10/2020, 01/18/2020 Medical Devices Not on file Procedures Procedure NamePriorityDate/TimeAssociated DiagnosisCommentsECG 12-LEADRoutine 07/20/2025 3:14 PM ESTMULTIPLE VCQPOmbtkmy16/11/2025 3:05 PM ESTXR HIP RT 2-3 VIEWS W OR WO SXJLRGTiiuwmr83/03/2025 2:32 PM ESTCOMPREHENSIVE METABOLIC PANEL Agmvvep5205/19/2025 12:00 PM EDT Hyperlipidemia, unspecified hyperlipidemia type LIPID KTVNLNNCcticsc49/10/2025 12:00 PM EDT Hyperlipidemia, unspecified hyperlipidemia type THYROID PROFILE INCLUDES TSH FL4Xmtxqey13/10/2025 12:00 PM EDT Hypothyroidism, unspecified type MAMM SCREENING BILATERAL W UNWDcfqthv48/07/2023 7:29 AM EST Breast cancer screening by mammogram HM VZJLBXFASIhqzxqu23/08/2022HM PAP EAZSSTlxuovq90/10/2020from Last 3 Months or Most Recently Relevant to Health Maintenance Results * ECG 12 lead (07/20/2025 3:14 PM EST) Narrative Authorizing ProviderResult TypeResult StatusNot In System Ref ProvECG ORDERABLES Final ResultPerforming OrganizationAddressCity/State/ZIP CodePhone Number MANUALLY TRANSCRIBED RESULTS * Multiple labs (07/20/2025 3:05 PM EST) Narrative Authorizing ProviderResult TypeResult StatusNot In System Ref ProvPR IMAGING Final ResultPerforming OrganizationAddressCity/State/ZIP CodePhone Number MANUALLY TRANSCRIBED RESULTS * X-ray hip right 2-3 views with or without pelvis (07/12/2025 2:32 PM EST) Anatomical RegionLateralityModalityLower Extremities, MSK, HipRightComputed Radiography Narrative Authorizing ProviderResult TypeResult StatusNot In System Ref ProvIMG DIAGNOSTIC IMAGING ORDERABLESFinal Result * Thyroid profile includes TSH FT4 (05/19/2025 12:00 PM EDT)ComponentValueRef RangeTest MethodAnalysis TimePerformed AtPathologist SignatureFREE T41.030.61 - 1.60 ng/dL05/19/2025 5:46 PM [facility]ORATORYTSH2.26 0.49 - 4.67 uIU/mL05/19/2025 5:46 PM [facility] Specimen (Source)Anatomical Location / LateralityCollection Method / Volume Collection TimeReceived TimeBloodVenous blood / Vdaerog9505/19/2025 12:00 PM EDT 05/19/2025 12:00 PM EDT Narrative Authorizing ProviderResult TypeResult StatusDennis G Furlong DOLAB BLOOD ORDERABLESFinal ResultPerforming OrganizationAddressCity/State/ZIP CodePhone Number [facility] [address] [place] [address], * Lipid profile (05/19/2025 12:00 PM EDT)ComponentValueRef RangeTest Method Analysis TimePerformed AtPathologist XavukcepsYGGIWSTNQUQ820153 - 200 mg/dL 05/19/2025 5:34 PM [facility] GGOECZHXUGSMNSLVWNUAMQ50689 - 150 mg/dL05/19/2025 5:34 PM [facility]ORATORYHDL LGRRVEFOPCX50>39 mg/dL05/19/2025 5:34 PM [facility]ORATORYComment: HDL <40 mg/dL - High Risk HDL > or = 40mg/dL- Desirable HDL >60 mg/dL - Negative Risk LDL (CALC)108<130 mg/dL05/19/2025 5:34 PM [facility] Comment: LDL <100 mg/dL - Desirable LDL >160 mg/dL - High Risk CHOLESTEROL:HDL3.11.0 - 5.010 5:34 PM [facility] LABORATORYVERY LOW LZUOZPNJRJB252 - 30 mg/dL05/19/2025 5:34 PM [facility] LABORATORYSpecimen (Source)Anatomical Location / Laterality Collection Method / VolumeCollection TimeReceived TimeBloodVenous blood / Fmgxhaa3305/19/2025 12:00 PM EDT1 12:00 PM EDT Narrative Authorizing ProviderResult TypeResult StatusDennis G Homewood DOLAB BLOOD ORDERABLESFinal ResultPerforming OrganizationAddressCity/State/ZIP CodePhone Number [facility] [address] [place] [address], * (ABNORMAL) Comprehensive metabolic panel (05/19/2025 12:00 PM EDT)Component ValueRef RangeTest MethodAnalysis TimePerformed AtPathologist SignatureSODIUM 836873 - 146 mmol/L1 5:34 PM [facility] POTASSIUM4.93.5 - 5.0 mmol/L1 5:34 PM [facility] HPSHSEDESSSCFSGHLK08048 - 109 mmol/L1 5:34 PM [facility] LABORATORYCARBON ZXFOQSF9993 - 32 mmol/L1 5:34 PM [facility] LABORATORYANION GAP85 - 15 mmol/L1 5:34 PM EDT [facility] LABORATORYBLOOD UREA YDTMQZUZ491 - 27 mg/dL05/19/2025 5:34 PM [facility] LABORATORYCREATININE0.810.40 - 1.00 mg/dL 05/19/2025 5:34 PM [facility]ORATORYComment:METHOD TRACEABLE TO IDNV REIKSQCTEDNXDNH3455 - 99 mg/dL05/19/2025 5:34 PM [facility] UTDNGNCRZDQTZDAAB37.6(H)8.5 - 10.5 mg/dL05/19/2025 5:34 PM [facility] LABORATORYTOTAL PROTEIN7.46.0 - 8.0 g/dL05/19/2025 5:34 PM [facility] LABORATORYALBUMIN4.53.2 - 5.3 g/dL 05/19/2025 5:34 PM [facility] LABORATORYALKALINE PHOSPHATASE 9739 - 130 U/L1 5:34 PM [facility] CHGWVSWGMPVXQ58 <=41 U/L1 5:34 PM [facility] JULGWLDQJVYOJ45<=31 U/L 05/19/2025 5:34 PM [facility] LABORATORYBILIRUBIN,TOTAL0.50.3 - 1.2 mg/dL05/19/2025 5:34 PM [facility]ORYEGFR Non- Race Cjgzqsfci66>=60 ml/min/1.73sq.m1 5:34 PM [facility] LABORATORYComment: Reported eGFR is based on the CKD-EPI 2020 equation that does not use a race coefficient. Specimen (Source)Anatomical Location / LateralityCollection Method / Volume Collection TimeReceived TimeBloodVenous blood / Fnyhdya4405/19/2025 12:00 PM EDT 05/19/2025 12:00 PM EDT Narrative Authorizing ProviderResult TypeResult StatusDennis G Furlong DOLAB BLOOD ORDERABLESFinal ResultPerforming OrganizationAddressCity/State/ZIP CodePhone Number [facility] [address] [place] [address], * Mammography screening bilateral with CAD (07/16/2023 7:29 AM EST)Anatomical RegionLateralityModalityBreastBilateralMammography Narrative Authorizing ProviderResult TypeResult StatusRegina Murrieta EMPLOYMENT OFFICE CLERK-FNPIMG MAMMOGRAPHY ORDERABLESFinal Result * HM COLOGUARD (02/14/2022) Narrative Authorizing ProviderResult TypeResult StatusRegina Murrieta EMPLOYMENT OFFICE CLERK-FNPHEALTH MAINTENANCEFinal ResultPerforming OrganizationAddressCity/State/ZIP CodePhone Number MANUALLY TRANSCRIBED RESULTS * HM PAP SMEAR (01/18/2020) Narrative Authorizing ProviderResult TypeResult StatusRegina Murrieta EMPLOYMENT OFFICE CLERK-FNPHEALTH MAINTENANCEFinal ResultPerforming OrganizationAddressCity/State/ZIP CodePhone Number MANUALLY TRANSCRIBED RESULTS from Last 3 Months or Most Recently Relevant to Health Maintenance Insurance Care Teams Team MemberRelationshipSpecialtyStart DateEnd Date Keven Castillo DO [address], [place] [address] PCP - GeneralFamily Fywfujqv35/30/22
--- OUTSIDE RECORDS SUMMARY | 2025-08-03 12:31 | XMS_ITS | Encounter Summary ---
Author Organization [facility] [employer] s tem Address [id number] [address] [place] [address] Care Team Providers Care Senior Insight Manager International Name Role Phone Keven Castillo DO Primary Care Provider + [phone] Encounter Details DateTypeDepartmentCare Team (Latest Contact Info)Bhuwzisdyfl39/12/2025Orders Only [facility] [address] [place] [address] Keven Castillo DO [address], [place] [address] Social History Tobacco UseTypesPacks/DayYears UsedDateSmoking Tobacco: NeverSmokeless Tobacco: NeverAlcohol UseStandard Drinks/WeekCommentsYes0 (1 standard drink = 0.6 oz pure alcohol)OccasiohalAHC UtilitiesAnswerDate RecordedIn the past 12 months has the [employer], gas, oil, or water [employer] threatened to shut off services in your home?No06/16/2023Social Connection and Isolation PanelAnswerDate RecordedIn a typical week, how many times do you talk on the phone with family, friends, or neighbors?More than three times a week10/27/2022How often do you get together with friends or relatives?More than three times a week10/27/2022How often do you attend methodist or congregational services?More than 4 times per year3Do you belong to any clubs or organizations such as methodist groups, unions, fraternal or athletic groups, or [...] and heating?Not hard at all 10/27/2022HQ-2AnswerDate RecordedTotal Wehbm56309/20/2024[facility] [place] [facility] Occupational Health - Occupational Stress QuestionnaireAnswerDate [...] a household?No 10/27/2022hildcareAnswerDate RecordedDo 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 [...] InformationValueDate RecordedSex Assigned at Not on fileLegal FdnXwkqxp37/06/2015 11:51 AM EDTGender IdentityNot on file Sexual OrientationNot on filedocumented as of this encounter Plan of Treatment DateTypeDepartmentCare Team (Latest Contact Info)Ckdvmyxtmpk71/12/2026 10:00 AM EDTOffice Visit [facility] [address] [place] [address] Keven Castillo DO [address] [place] [address] documented as of this encounter Visit Diagnoses Not on filedocumented in this encounter Additional Health Concerns AssessmentNoted TimePHQ-9 Depression Total Score: 4:24 PM ESTA Body Mass Index follow-up plan has been documented for the oyimqmb2208/09/2022 9:37 PM ESTdocumented as of this encounter Care Teams Team MemberRelationshipSpecialtyStart DateEnd Date Keven Castillo DO [address] [place] [address] PCP - GeneralFamily Nxiuirzj74/30/22documented as of this encounter
--- OUTSIDE RECORDS SUMMARY | 2025-08-03 12:31 | XMS_ITS | Clinical Summary ---
Author Organization [facility] Address [address] [place] [address] Care Team Providers Care Antique Jewelry Repairer Name Role Phone Keven Castillo MD Primary Care Provider [phone] Allergies Active AllergyReactionsCriticalityNoted CdwgDwuoyshxQzhetxxkatIzbnOgm10/13/2023 Ndtraitbdmb84/30/2022 Other Reaction(s): Unknown Medications MedicationSigDispense QuantityRefillsLast FilledStart DateEnd DateStatus aspirin 81 MG chewable tablet Chew 81 mg in the morning.Active donepezil (Aricept) 10 MG tablet Take 10 mg by mouth at /18/2024Active levothyroxine (Synthroid, Levoxyl) 50 MCG tablet Take 50 mcg by mouth in the morning.5Active nitroglycerin (Nitrostat) 0.[address] 0.4 mg under the tongueActive omega-3 1000 MG capsule capsule Take by mouthActive rosuvastatin (Crestor) 40 MG tablet Take 40 mg by mouth in the morning.5Active ticagrelor (Brilinta) 60 MG tablet Take 60 mg by mouth in the morning and 60 mg in the evening.Active clopidogrel (Plavix) 75 MG tablet Take 75 mg by mouth DailyActive oxyCODONE-acetaminophen (Percocet) 5-325 MG tablet Indications:Primary osteoarthritis of left hip,Post-operative painTake 1 tablet by mouth every 6 (six) hours if needed for moderate pain for up to 7 days 28 tablet /5Active ondansetron (Zofran) 4 MG tablet Indications:Postoperative nausea1 tab every 6h prn nausea 12 tablet /5Active Iron Polysacch Cvdia-Z77-FJ (Poly-Iron 150 Forte) 150-0.025-1 MG capsule Indications:Pre-op examinationTake 1 tablet by mouth Daily 30 capsule Expired Active Problems ProblemNoted DateDiagnosed DateAcute postoperative pain of left hip08/01/2025 Status post left hip wgsmorzycua61/23/2025Difficulty mxhxbnc1708/01/2025Primary osteoarthritis of left hip05/19/20252319Oghqbcpnrwzcsu55/29/2024Hyperlipidemia 05/22/2023Single vessel coronary wgrwgak1605/22/2023Sinus udftmfleqqp16/13/2023 Mild major qsrmvrkbou71/20/2023ognitive /20/2023 Encounters DateTypeDepartmentCare MwzpHbsvtltpxtq96/23/2025Telephone [facility] [address] [place] [address] Alex Lynn, PA 08/01/2025Telephone [facility] [address] [facility] [address] [place] [address] Jr. Gurdeep Dow, Xlszmfoca94/23/2025Plan of Care Documentation [facility] [address] [facility] [address] [place] [address] 07/28/2025Refill [facility] [address] [facility] [place] [address] Ricci Jones, SUGGESTION CLERK Primary osteoarthritis of left hip (Primary Dx); Post-operative pain07/28/2025Orders Only [facility] [address] [facility] [address] Zee Garcia MA Primary osteoarthritis of left hip (Primary Dx)07/04/2025[facility] [address] [place] [address] Zee Garcia MA Zwrxmg6307/03/2025 11:00 AM ESTOffice Visit [facility] [place] [address] Ricci Jones, BOB Primary osteoarthritis of left hip (Primary Dx); Pre-op anzatgnqzcf52/24/2025amboo flowsheet [facility] [address] [place] [address] Ricci Jones NP 07/03/20257294Qmcxym38/02/2025Telephone [facility] [address] [address] [place] [address] Jr. Gurdeep Dow, DO Surgeryfrom Last 3 Months Family History RelationNameStatusCommentsFatherDeceasedMotherDeceased Social History Tobacco UseTypesPacks/DayYears UsedDateSmoking Tobacco: NeverSmokeless Tobacco: Never Tobacco Cessation:Counseling Given: Not Answered Alcohol UseStandard Drinks/WeekCommentsNot Currently0 (1 standard drink = 0.6 oz pure alcohol)CommentsUnknownSex and Gender InformationValueDate Recorded Sex Assigned at BirthNot on fileLegal BbmRlyuwu61/15/2023 6:58 PM EDTGender IdentityNot on fileSexual OrientationNot on file Last Filed Vital Signs Vital SignReadingTime TakenCommentsBlood Pressure--Pulse--Temperature-- Respiratory Rate--Oxygen Saturation--Inhaled Oxygen Concentration--Hsexxx08.8 kg (165 lb)07/03/2025 11:02 AM MKGPtrazj899.6 cm (5' 4 )07/03/2025 11:02 AM ESTBody Mass Index28.32109/02/2024 11:02 AM EST Plan of Treatment DateTypeDepartmentCare Team (Latest Contact Info)Yicfkhsevlw06/05/2026 10:00 AM ESTOffice Visit [facility] [address] [place] [address] Ricci Jones, BOB [address] [place] [address] Health MaintenanceDue DateLast DoneCommentsCT Zhpxqkknxsfp05/15/1958Colonoscopy 1957Colorectal Cancer Rxraangef87/15/1958FIT-DNA1957FIT1957 FOBT1957 4385Kkdbsirelyaoo20/15/1958Pneumococcal Vaccine: 65+ Years (1 of 1 - PCV)11/23/20071960Cavgxudcv15Influenza Vaccine (#1)2025 05/10/2020, 08/10/2017, 05/10/2015, Additional history exists Insurance Care Teams Team MemberRelationshipSpecialtyStart DateEnd Date Keven Castillo MD [address], [facility] [place] [address] PCP - GeneralFamily Medicine04/25/25
--- OUTSIDE RECORDS SUMMARY | 2025-08-03 12:31 | XMS_ITS | Encounter Summary ---
Author Organization [facility] Address [address] [facility] [place] [address] Care Team Providers Care Surgical Supervisor Name Role Phone Keven Castillo MD Primary Care Provider + [phone] Reason for Referral * Rehabilitation - Outpatient (Routine) - AuthorizedSpecialtyDiagnoses / ProceduresReferred By ContactReferred To ContactPhysical Therapy Diagnoses S/P hip replacement, left Procedures HI OFFICE/OUTPATIENT NEW HIGH MDM 60 MINUTES Monroe Lynn PA [address] [place] [address] Phone: tel: fax: [facility] [address] [place] [address] Phone: tel: fax: Referral IDStatusReasonStart DateExpiration DateVisits RequestedVisits [id number] Specialty Services Required /[id number] Encounter Details DateTypeDepartmentCare Team (Latest Contact Info)Zcnpcnevqou34/23/2025Telephone [facility] [address] [facility] [address] [place] [address] Monroe Lynn PA [address] [place] [address] Social History Tobacco UseTypesPacks/DayYears UsedDateSmoking Tobacco: NeverSmokeless Tobacco: NeverAlcohol UseStandard Drinks/WeekCommentsNot Currently0 (1 standard drink = 0.6 oz pure alcohol)CommentsUnknownSex and Gender InformationValueDate RecordedSex Assigned at BirthNot on fileLegal MtwDvwqhl46/15/2023 6:58 PM EDT Gender IdentityNot on fileSexual OrientationNot on filedocumented as of this encounter Miscellaneous Notes * Telephone Encounter - Zee Garcia MA - 08/01/2025 3:19 PM EST Faxed over to [facility]. * Addendum Note - ISIDORO Underwood - 08/01/2025 12:26 PM ESTAddended by: MONROE LYNN on: 08/01/2025 12:26 PM Modules accepted: Orders * Telephone Encounter - ISIDORO Underwood - 08/01/2025 12:25 PM EST Placed order for [facility]- can you fax this with PAT sheet- thanks- Varun * Telephone Encounter - ISIDORO Underwood - 08/01/2025 11:59 AM EST Pt requesting Rx zofran per Candy Steward RX sent. Recommend ER if symptoms persist or worsen. documented in this encounter Plan of Treatment DateTypeDepartmentCare Team (Latest Contact Info)Nkcdgalbmxb34/05/2026 10:00 AM ESTOffice Visit [facility] [address] [place] [address] Ricci Jones, PARADI OPERATOR [address] [place], [place] [id number] NameTypePriorityAssociated DiagnosesOrder ScheduleAmbulatory referral to Physical TherapyOutpatient ReferralRoutine S/P hip replacement, left Expected: 08/01/2025 (Approximate), Expires: 01/30/2026documented as of this encounter Visit Diagnoses Diagnosis Postoperative nausea- Primary S/P hip replacement, left documented in this encounter Care Teams Team MemberRelationshipSpecialtyStart DateEnd Date Keven Castillo MD [address] [facility], [place] [address] PCP - GeneralFamily Medicine04/25/25documented as of this encounter
--- OUTSIDE RECORDS SUMMARY | 2025-08-03 12:31 | XMS_ITS | Encounter Summary ---
Author Organization [facility] Address [address] [place] [address] Care Team Providers Care Aircraft Shipping Checker Name Role Phone Keven Castillo MD Primary Care Provider + [phone] Reason for Referral * Rehabilitation - Outpatient (Routine) - Pending ReviewSpecialtyDiagnoses / ProceduresReferred By ContactReferred To ContactPhysical Therapy Diagnoses Primary osteoarthritis of left hip Procedures OK OFFICE/OUTPATIENT NEW HIGH MDM 60 MINUTES Jr. Gurdeep Dow DO [address] [address] Phone: tel: fax: Benny Lopez, PT [address] [facility] [address] [place] [address] Phone: tel: fax: Referral IDStatusReasonStart DateExpiration DateVisits RequestedVisits [id number] Review Specialty Services Required / Encounter Details DateTypeDepartmentCare Team (Latest Contact Info)Yfmtssqjetq52/19/2025Orders Only [facility] [address] [place] [address] Zee Garcia MA Primary osteoarthritis of left hip (Primary Dx) Social History Tobacco UseTypesPacks/DayYears UsedDateSmoking Tobacco: NeverSmokeless Tobacco: NeverAlcohol UseStandard Drinks/WeekCommentsNot Currently0 (1 standard drink = 0.6 oz pure alcohol)CommentsUnknownSex and Gender InformationValueDate RecordedSex Assigned at BirthNot on fileLegal SxvAgyytb12/15/2023 6:58 PM EDT Gender IdentityNot on fileSexual OrientationNot on filedocumented as of this encounter Plan of Treatment DateTypeDepartmentCare Team (Latest Contact Info)Teziqladjmp65/05/2026 10:00 AM ESTOffice Visit [facility] [address] [facility] [place] [address] Ricci Jones, CIGARETTE CATCHER [address] [place], [place] [phone] NameTypePriorityAssociated DiagnosesOrder ScheduleAmbulatory referral to Physical TherapyOutpatient ReferralRoutine Primary osteoarthritis of left hip Expected: 07/28/2025 (Approximate), Expires: 01/26/2026documented as of this encounter Visit Diagnoses Diagnosis Primary osteoarthritis of left hip- Primary documented in this encounter Care Teams Team MemberRelationshipSpecialtyStart DateEnd Date Keven Castillo MD [address] [facility] [place] [address] PCP - GeneralFamily Medicine04/25/25documented as of this encounter
--- OUTSIDE RECORDS SUMMARY | 2025-08-03 12:31 | XMS_ITS | Encounter Summary ---
Author Organization [facility] Address [id number] [place] [address] Care Team Providers Care Turbo Operator Name Role Phone AnnaKeven Primary Care Provider + [phone] Encounter Details DateTypeDepartmentCare Team (Latest Contact Info)Chtwlpluiwn00/11/2025Orders Only [facility] [address] [facility] [place] [address] Ref Prov, [place] [address] Social History Tobacco UseTypesPacks/DayYears UsedDateSmoking Tobacco: NeverSmokeless Tobacco: NeverAlcohol UseStandard Drinks/WeekCommentsYes0 (1 standard drink = 0.6 oz pure alcohol)OccasiohalAHC UtilitiesAnswerDate RecordedIn the past 12 months has the electric, gas, oil, or water [employer] threatened to shut off services in your home?No06/16/2023Social Connection and Isolation PanelAnswerDate RecordedIn a typical week, how many times do you talk on the phone with family, friends, or neighbors?More than three times a week10/27/2022How often do you get together with friends or relatives?More than three times a week10/27/2022How often do you attend mosque or shinto services?More than 4 times per year3Do you belong to any clubs or organizations such as mosque groups, unions, fraternal or athletic groups, or [...] and heating?Not hard at all 10/27/2022HQ-2AnswerDate RecordedTotal Equmq83809/20/2024[facility] [place] of Occupational Health - Occupational Stress QuestionnaireAnswerDate [...] a household?No 10/27/2022hildcareAnswerDate RecordedDo problems getting child adolescent psychiatrist make it difficult for you to work [...] InformationValueDate RecordedSex Assigned at Not on fileLegal NsfGgsdln32/06/2015 11:51 AM EDTGender IdentityNot on file Sexual OrientationNot on filedocumented as of this encounter Plan of Treatment DateTypeDepartmentCare Team (Latest Contact Info)Cdnqmwcuzst17/12/2026 10:00 AM EDTOffice Visit [facility] [address] [place] [address] Keven Castillo DO [address], [place] [address] documented as of this encounter Procedures Procedure NamePriorityDate/TimeAssociated DiagnosisCommentsECG 12-LEADRoutine 07/20/2025 3:14 PM ESTMULTIPLE DLVWVkctmye04/11/2025 3:05 PM ESTXR HIP RT 2-3 VIEWS W OR WO RCFUXSAhichgu44/03/2025 2:32 PM ESTdocumented in this encounter Results * ECG 12 lead (07/20/2025 3:14 [...] System Ref ProvIMG DIAGNOSTIC IMAGING ORDERABLESFinal Result documented in this encounter Visit Diagnoses Not on filedocumented in this encounter Additional Health Concerns AssessmentNoted TimePHQ-9 Depression Total Score: 4:24 PM ESTA Body Mass Index follow-up plan has been documented for the zzmvoqz0208/09/2022 9:37 PM ESTdocumented as of this encounter Care Teams Team MemberRelationshipSpecialtyStart DateEnd Date Keven Castillo DO [address] [facility], [place] [address] PCP - GeneralFamily Anpcfujw72/30/22documented as of this encounter
--- OUTSIDE RECORDS SUMMARY | 2025-08-03 12:31 | XMS_ITS | Encounter Summary ---
Author Organization [facility] Address [address] [place] [address] Care Team Providers Care Cloth Grader Name Role Phone Keven Castillo MD Primary Care Provider + [phone] Reason for Visit * ReasonOnset ZzisFifsxwnnBkwxcayov58/23/2025 Encounter Details DateTypeDepartmentCare Team (Latest Contact Info)Hvvbopkiecy57/23/2025Telephone [facility] [address] [facility] [address] [place] [address] Jr. Gurdeep Dow, DO [address] [place] [address] Questions Social History Tobacco UseTypesPacks/DayYears UsedDateSmoking Tobacco: NeverSmokeless Tobacco: NeverAlcohol UseStandard Drinks/WeekCommentsNot Currently0 (1 standard drink = 0.6 oz pure alcohol)CommentsUnknownSex and Gender InformationValueDate RecordedSex Assigned at BirthNot on fileLegal CjnTyrgan84/15/2023 6:58 PM EDT Gender IdentityNot on fileSexual OrientationNot on filedocumented as of this encounter Miscellaneous Notes * Telephone Encounter - Nelly Knapp - 08/01/2025 11:01 AM EST Patient's called. Patient has an upset stomach and is unable to eat anything. He wants to know if we can prescribe anything. He would also like to know if she can take anything between the 6 hours of the oxycodone. Please advise [phone] documented in this encounter Plan of Treatment DateTypeDepartmentCare Team (Latest Contact Info)Ooyrcnrkdyi80/05/2026 10:00 AM ESTOffice Visit [facility] [address] [place] [address] Ricci Jones, FIELD AIDE [address] [place] [address] documented as of this encounter Visit Diagnoses Not on filedocumented in this encounter Care Teams Team MemberRelationshipSpecialtyStart DateEnd Date Keven Castillo MD [address], [facility] [place] [address] PCP - GeneralFamily Medicine04/25/25documented as of this encounter
--- OUTSIDE RECORDS SUMMARY | 2025-08-03 12:31 | XMS_ITS | Encounter Summary ---
Author Organization [facility] Address [id number] [address] [place] [address] Care Team Providers Care Spray Operator Name Role Phone Keven Castillo DO Primary Care Provider + [phone] Encounter Details DateTypeDepartmentCare Team (Latest Contact Info)Rsbueotnxfe46/11/2025Travel Social History Tobacco UseTypesPacks/DayYears UsedDateSmoking Tobacco: NeverSmokeless Tobacco: NeverAlcohol UseStandard Drinks/WeekCommentsYes0 (1 standard drink = 0.6 oz pure alcohol)OccasiohalAHC UtilitiesAnswerDate RecordedIn the past 12 months has the electric, gas, oil, or water company threatened to shut off services in your home?No06/16/2023Social Connection and Isolation PanelAnswerDate RecordedIn a typical week, how many times do you talk on the phone with family, friends, or neighbors?More than three times a week10/27/2022How often do you get together with friends or relatives?More than three times a week10/27/2022How often do you attend yazidi or jainism services?More than 4 times per year10/27/2022o you belong to any clubs or organizations such as yazidi groups, unions, fraternal or athletic groups, or [...] and heating?Not hard at all 10/27/2022HQ-2AnswerDate RecordedTotal Bwcoj73809/20/2024[facility] [place] of Occupational Health - Occupational Stress QuestionnaireAnswerDate [...] of a household?No 10/27/2022hildcareAnswerDate RecordedDo problems getting early childhood education specialist make it difficult for you to work [...] InformationValueDate RecordedSex Assigned at Not on fileLegal ZsnDxfsyw95/06/2015 11:51 AM EDTGender IdentityNot on file Sexual OrientationNot on filedocumented as of this encounter Plan of Treatment DateTypeDepartmentCare Team (Latest Contact Info)Powsnjbuduy64/12/2026 10:00 AM EDTOffice Visit [facility] [address] [place] [address] Keven Castillo DO [address] [facility] [place] [address] documented as of this encounter Visit Diagnoses Not on filedocumented in this encounter Additional Health Concerns AssessmentNoted TimePHQ-9 Depression Total Score: 4:24 PM ESTA Body Mass Index follow-up plan has been documented for the thmzzar0408/09/2022 9:37 PM ESTdocumented as of this encounter Care Teams Team MemberRelationshipSpecialtyStart DateEnd Date Keven Castillo DO [address] [facility] [place] [address] PCP - GeneralFamily Pspocbqa84/30/22documented as of this encounter
--- OUTSIDE RECORDS SUMMARY | 2025-08-03 12:31 | XMS_ITS | Encounter Summary ---
Author Organization [facility] Address [address] [facility] [place] [address] Care Team Providers Care Surgical Supplies Sterilizer Name Role Phone Keven Castillo MD Primary Care Provider + [phone] Encounter Details DateTypeDepartmentCare Team (Latest Contact Info)Odfcsdllyql36/19/2025Refill [facility] [address] [place] [address] Ricci Jones NP [address] [place] [address] Primary osteoarthritis of left hip (Primary Dx); Post-operative pain Social History Tobacco UseTypesPacks/DayYears UsedDateSmoking Tobacco: NeverSmokeless Tobacco: NeverAlcohol UseStandard Drinks/WeekCommentsNot Currently0 (1 standard drink = 0.6 oz pure alcohol)CommentsUnknownSex and Gender InformationValueDate RecordedSex Assigned at BirthNot on fileLegal BueHpdjvz74/15/2023 6:58 PM EDT Gender IdentityNot on fileSexual OrientationNot on filedocumented as of this encounter Miscellaneous Notes * Telephone Encounter - Ricci Jones NP - 07/28/2025 2:36 PM EST Post op pain rx. PDMP reviewed. Dr. Dow was unable to send in rx due to technical issues. He gave verbal order for me to send in documented in this encounter Plan of Treatment DateTypeDepartmentCare Team (Latest Contact Info)Nfebfbfuovt52/05/2026 10:00 AM ESTOffice Visit [facility] [address] [place] [address] Ricci Jones, ANIMAL COP [address] [place] [address] documented as of this encounter Visit Diagnoses Diagnosis Primary osteoarthritis of left hip- Primary Post-operative pain Other acute postoperative pain documented in this encounter Care Teams Team MemberRelationshipSpecialtyStart DateEnd Date Keven Castillo MD [address] [facility] [address] PCP - GeneralFamily Medicine04/25/25documented as of this encounter
--- OUTSIDE RECORDS SUMMARY | 2025-08-03 12:31 | XMS_ITS | Encounter Summary ---
Author Organization [facility] Address [address] [place] [address] Care Team Providers Care Risk Prevention Engineer Name Role Phone Keven Castillo MD Primary Care Provider +[phone] Encounter Details DateTypeDepartmentCare Team (Latest Contact Info)Eprbcqqboth41/23/2025Plan of Care Documentation [facility] [place] [facility] [address] [facility] [address] [place] [address] Social History Tobacco UseTypesPacks/DayYears UsedDateSmoking Tobacco: NeverSmokeless Tobacco: NeverAlcohol UseStandard Drinks/WeekCommentsNot Currently0 (1 standard drink = 0.6 oz pure alcohol)CommentsUnknownSex and Gender InformationValueDate RecordedSex Assigned at BirthNot on fileLegal LrnLmqici72/15/2023 6:58 PM EDT Gender IdentityNot on fileSexual OrientationNot on filedocumented as of this encounter Plan of Treatment DateTypeDepartmentCare Team (Latest Contact Info)Sifquenyfyt85/05/2026 10:00 AM ESTOffice Visit [facility] [address] [place] [address] Ricci Jones NEGATIVE NOTCHER [address] [place] [address] documented as of this encounter Visit Diagnoses Not on filedocumented in this encounter Care Teams Team MemberRelationshipSpecialtyStart DateEnd Date Keven Castillo MD [address] [place], [place] [address] PCP - GeneralFadely Medicine04/25/25documented as of this encounter
--- OUTSIDE RECORDS SUMMARY | 2025-08-03 12:31 | XMS_ITS | Clinical Summary ---
Author Organization [facility] Address [address] [place] [address] Phone Care Team Providers Care Certified Personal Trainer Name Role Phone AnnaKeven Primary Care Provider + [phone] Allergies Active AllergyReactionsCriticalityNoted JmxqNxrnasgaGpqedpydlbNvgnWjg12/13/2023 KapwbqfeygtPdiewwf62/13/2023 Medications MedicationSigDispense QuantityRefillsLast FilledStart DateEnd DateStatus omega 3-iup-slf-fish oil (Fish OiL) 1,200 (144-216) mg capsule Take 1 capsule (1,200 mg) by mouth early in the morning..Active levothyroxine (Synthroid, Levoxyl) 50 mcg tablet Take 1 tablet (50 mcg) by mouth once daily.Active nitroglycerin (Nitrostat) 0.[address] 1 tablet (0.4 mg) under the tongue every 5 minutes if needed for chest pain.Active rosuvastatin (Crestor) 40 mg tablet Take 1 tablet (40 mg) by mouth once daily at bedtime.Active donepezil (Aricept) 10 mg tablet Take 1 tablet (10 mg) by mouth once daily at bedtime.4Active aspirin 81 mg EC tablet Indications:Single vessel coronary diseaseTake 1 tablet (81 mg) by mouth once daily. 90 tablet 3:52 PM EST5Active clopidogrel (Plavix) 75 mg tablet Indications:H/O two vessel coronary artery bypass graft,Single vessel coronary diseaseTake 1 tablet (75 mg) by mouth once daily. 90 tablet 6Active Active Problems ProblemNoted DateDiagnosed DateNever smoked vhciqfu8505/15/2025Preop cardiovascular exam05/15/2025MI 27.0-27.9,adult05/03/2024H/O two vessel coronary artery bypass graft05/03/2024yspnea on lvfytgcm27/13/2023 Cndzakipqhqglh17/13/2023Sinus viksrzrxicn76/13/2023 Resolved Problems ProblemNoted DateDiagnosed DateResolved DateSingle vessel coronary disease Encounters DateTypeDepartmentCare SwcdVijieertbla73/06/2025 10:00 AM EDTOffice Visit at [facility] [address] [place] [phone] Kamaljit Howell MD H/O two vessel coronary artery bypass graft (Primary Dx); Preop cardiovascular exam; Sinus bradycardia; Mixed hyperlipidemia; Dyspnea on exertion; BMI 27.0-27.9,adult; Never smoked tobacco; Single vessel coronary disease Discharge Disposition: Home05/15/2025Telephone at [facility] [address] [phone] Paty Her RN 05/15/2025Travelfrom Last 3 Months Immunizations ImmunizationAdministration DatesNext DueCOVID-19, mRNA, LNP-S, PF, 30 mcg/0.3 mL dose11/06/2020,10/16/2020Influenza, Dxtownpprab46/01/2020,08/10/2017,05/10/2015, 05/10/2013 Family History Medical HistoryRelationNameCommentsCancerBrotherHeart diseaseBrotherCancerFather Heart diseaseMotherHyperlipidemiaMotherRelationNameStatusCommentsBrotherFather Mother Social History Tobacco UseTypesPacks/DayYears UsedDateSmoking Tobacco: NeverSmokeless Tobacco: NeverAlcohol UseStandard Drinks/WeekCommentsYes0 (1 standard drink = 0.6 oz pure alcohol)very rareCommentsUnknownSex and Gender InformationValueDate RecordedSex Assigned at BirthNot on fileLegal TqwXprhvq67/25/2022 3:05 PM EST Gender IdentityNot on fileSexual OrientationNot on file Last Filed Vital Signs Vital SignReadingTime TakenCommentsBlood Opxqqbtb585/6605/15/2025 10:00 AM EDT Bmmav913705/15/2025 10:00 AM EDTTemperature--Respiratory Rate--Oxygen Saturation-- Inhaled Oxygen Concentration--Gcoitb73.9 kg (163 lb)05/15/2025 10:00 AM EDT Jcalep749.6 cm (5' 4 )05/15/2025 10:00 AM EDTBody Mass Index27.9805/15/2025 10:00 AM EDT Plan of Treatment DateTypeDepartmentCare Team (Latest Contact Info)Opplycwxaow10/08/2026 1:00 PM EDTOffice Visit at [facility] [address] [facility] [address] [place] [phone] Kamaljit Howell MD [address] [facility] [address] [place] [address] [place] [address] Health MaintenanceDue DateLast DoneCommentsCT Eqbpyoydptuo89/15/1958Colonoscopy 1957Colorectal Cancer Pzxvtdsbc13/15/1958FIT-DNA (Cologuard)1957FIT 1957Medicare Annual Wellness Visit (AWV)1957Vclllfsoelpou95/15/1958 TSH Level1957MMR Vaccines (1 of 1 - Standard series)1958Diabetes Evhlqtyfq27/15/1976Hepatitis C Yzwqgmlwy23/15/1976Pneumococcal Vaccine (1 of 2 - PCV)1976DTaP/Tdap/Td Vaccines (1 - Tdap)11/23/1979RSV High Risk: (Elderly (60+) or Population) (1 - Risk 50-74 years 1-dose series)11/23/2007 Zoster Vaccines (1 of 2)11/23/2007one Density Scan11/22/20227575Hseszrccb17/07/2024 07/16/2023, 07/16/2023, 07/16/2023Lipid Panel5008/26/2019COVID-19 Vaccine ( season)2025Influenza Vaccine (#1)2025 05/10/2020, 08/10/2017, 05/10/2015, Additional history existsHIB VaccinesAged OutNo longer eligible based on patient's age to complete this topicHPV Vaccines Aged OutNo longer eligible based on patient's age to complete this topic Hepatitis A VaccinesAged OutNo longer eligible based on patient's age to complete this topicHepatitis B VaccinesAged OutNo longer eligible based on patient's age to complete this topicIPV VaccinesAged OutNo longer eligible based on patient's age to complete this topicMeningococcal VaccineAged OutNo longer eligible based on patient's age to complete this topicRotavirus VaccinesAged Out No longer eligible based on patient's age to complete this topic Procedures Procedure NamePriorityDate/TimeAssociated DiagnosisCommentsLIPID PANELRoutine 08/26/2019 9:50 AM EST from Last 3 Months or Most Recently Relevant to Health Maintenance Results * Lipid Panel (08/26/2019 9:50 AM EST)ComponentValueRef RangeTest MethodAnalysis TimePerformed AtPathologist XheqlmqsaAobwbaxnaty1474 - 199 mg/dLH[facility] LABComment: . ?AGE ?DESIRABLE ?? BORDERLINE HIGH ?? HIGH 0-19 Y 0 - 169 170 - 199 >/= 200 20-24 Y 0 - 189 190 - 224 >/= 225 >24 Y 0 - 199 200 - 239 >/= 240 All ranges are based on fasting samples. Specific therapeutic targets will vary based on patient-specific cardiac risk. . Pediatric guidelines reference:Pediatrics 2011, 128(S5). Adult guidelines reference: NCEP ATPIII Guidelines, ??CECILIO 2001, 258:2486-97 . Venipuncture immediately after or during the administration of Metamizole may lead to falsely low results. Testing should be performed immediately prior to Metamizole dosing. HDL58.0mg/dLH[facility] LABComment: . ?AGE ?VERY LOW ?? LOW ? NORMAL ?HIGH ?? 0-19 Y < 35 < 40 40-45 ---- 20-24 Y ---- < 40 >45 ---- >24 Y ---- < 40 40-60 >60 . Cholesterol/HDL Ratio3.0[facility] LABComment: REF VALUES DESIRABLE < 3.4 HIGH RISK > 5.0 ZUJ948 - 99 mg/dLH[facility] LABComment: . ? NEAR ?BORD ?AGE ?DESIRABLE ??OPTIMAL ?HIGH ? HIGH ? VERY HIGH 0-19 Y 0 - 109 --- 110-129 >/= 130 ---- 20-24 Y 0 - 119 --- 120-159 >/= 160 ---- >24 Y 0 - 99 100-129 130-159 160-189 >/=190 . KFWW786 - 40 mg/dLH[facility] ZUPXjanoltgzmfqq8641 - 149 mg/dLH[facility] LABComment: . ?AGE ?DESIRABLE ?? BORDERLINE HIGH ?? HIGH ? VERY HIGH 0 D-90 D ?19 - 174 ? ---- ? ---- ?---- 91 D- 9 Y 0 - 74 75 - 99 >/= 100 ---- 10-19 Y 0 - 89 90 - 129 >/= 130 ---- 20-24 Y 0 - 114 115 - 149 >/= 150 ---- >24 Y 0 - 149 150 - 199 200- 499 >/= 500 . Venipuncture immediately after or during the administration of Metamizole may lead to falsely low results. Testing should be performed immediately prior to Metamizole dosing. Specimen (Source)Anatomical Location / LateralityCollection Method / Volume Collection TimeReceived Time08/26/2019 9:50 AM EST08/26/2019 3:43 PM EST Narrative Authorizing ProviderResult TypeResult StatusMourjan Howell MDPRATT REGIONAL [facility] BLOOD ORDERABLESFinal ResultPerforming OrganizationAddressCity/State/ZIP CodePhone Number [facility] from Last 3 Months or Most Recently Relevant to Health Maintenance Insurance Care Teams Team MemberRelationshipSpecialtyStart DateEnd Date Keven Castillo DO [facility] - General08/10/99
[2025-08-03 12:32] LABS: Hematocrit 30.1 % (36.0-48.0); Hemoglobin 10.0 g/dL (12.0-16.0); Immature Granulocytes Abs Auto 0.03 10^3/uL (0.00-0.03); Immature Granulocytes Pct Auto 0.3 % (0.0-0.5); Lymphocytes Absolute Auto 1.0 10^3/uL (1.2-3.8); Mean Corpuscular HGB Conc 33.2 g/dL (29.9-35.2); Mean Corpuscular Hemoglobin 28.3 pg (26.7-34.0); Mean Corpuscular Volume 85.3 fL (81.0-99.0); Platelet Count 200 10^3/uL (150-450); Red Blood Count 3.53 10^6/uL (4.20-5.40); White Blood Count 8.7 10^3/uL (4.0-11.0)
[2025-08-03 12:47] LABS: Alanine Aminotransferase 30 U/L (14-59); Albumin Globulin Ratio 0.8; Albumin Level 3.0 g/dL (3.4-5.0); Alkaline Phosphatase 93 U/L (46-116); Anion Gap 12.2; Aspartate Amino Transferase 30 U/L (15-37); Blood Urea Nitrogen 11.0 mg/dL (7.0-18.0); Calcium 9.5 mg/dL (8.5-10.1); Carbon Dioxide 27.7 mmol/L (21.0-32.0); Chloride 102 mmol/L (98-107); Estimated GFR (African America >60 (>=60 mL/min/1.73m^2); Estimated GFR (Non-African Ame 57 (>=60 mL/min/1.73m^2); Globulin 3.6 g/dL; Glucose 135 mg/dL (74-106); Potassium 3.9 mmol/L (3.5-5.1); Sodium 138 mmol/L (136-145); Total Protein 6.6 g/dL (6.4-8.2)
[2025-08-03] MEDS: MORPHINE SULFATE 2 MG/ML SYRINGE IV (13:32)
[2025-08-03] MEDS: OXYCODONE HCL 5 MG TABLET PO (13:32)
== END 2025-08-03 16:14 | disposition home or self-care (01) ==
PROVIDERS: Emergency Provider Student in an Organized Health Care Education/Training Program; PCP Family Medicine
DX: R55 Syncope and collapse (principal); M25.552 Pain in left hip
CPT/HCPCS: 36415; 73502; 80053; 84484; 85025; 93005; 96361; 96374; 96375; 99284; J1171; J2270; J2405